=== PATIENT | male | born 1970 | race Caucasian/White ===

== ENCOUNTER 2021-09-20 18:27 | Inpatient (IN) ==
[2021-09-20] MEDS ORDERED: Melatonin 3 MG TABLET PO PRN (21:31)
[2021-09-20] MEDS ORDERED: Naloxone 0.4 MG/ML INJ IVP PRN (21:31)
[2021-09-20] MEDS ORDERED: GI Cocktail 40 ML EACH PO ONE (22:06)
[2021-09-21 01:07] LABS: Hematocrit 41.6 % (37.5-50.1); Hemoglobin 13.9 g/dL (12.9-16.9); Mean Corpuscular HGB Conc 33.4 g/dL (31.6-35.5); Mean Corpuscular Hemoglobin 32.8 pg (28.0-33.3); Mean Corpuscular Volume 98.1 fL (83.0-100.0); Mean Platelet Volume 10.8 fL (9.4-12.4); Platelet Count 216 K/mcL (140-400); Red Blood Count 4.24 M/mcL (4.19-5.50); Red Cell Distribution Width 13.4 % (11.5-14.5); White Blood Count 9.9 K/mcL (4.3-11.1)
[2021-09-21 01:32] LABS: Alanine Aminotransferase 33 Units/L (7-52); Albumin 3.5 g/dL (3.5-5.7); Albumin/Globulin Ratio 1.8 (1.1-2.2); Alkaline Phosphatase 68 Units/L (34-104); Aspartate Amino Transferase 28 Units/L (13-39); BUN/Creatinine Ratio 23 (6-26); Bilirubin,Total 0.4 mg/dL (0.3-1.0); Blood Urea Nitrogen 26 mg/dL (6-20); Calcium 8.3 mg/dL (8.6-10.3); Carbon Dioxide 25 mEq/L (23-29); Chloride 106 mEq/L (98-107); Globulin 1.9 g/dL (2.4-3.5); Glucose 105 mg/dL (70-105); Magnesium 2.2 mg/dL (1.6-2.6); Osmolality,Calculated 291 (280-300); Sodium 138 mEq/L (136-145); Total Protein 5.4 g/dL (6.4-8.9); Troponin I < 0.03 ng/mL (< 0.04); eGFR For African Americans > 60 (> 60); eGFR For Non-African Americans > 60 (> 60)
[2021-09-21] MEDS: *HR* Heparin 5,000 UNIT/ML VIAL SQ SCH ×2 (06:25→16:56)
[2021-09-21] MEDS: lisinopriL 20 MG TABLET PO SCH (08:39)
[2021-09-21] MEDS: Aspirin 81 MG TAB.CHEW PO SCH (08:39)
[2021-09-21] MEDS ORDERED: Regadenoson 0.4 MG/5 ML SYRINGE IVP ONE (08:40)
[2021-09-21] MEDS: Nicotine 21 MG PATCH.TD24 TD SCH (14:08)
[2021-09-21] MEDS: Isosorbide MONOnitrate (24 HR) 30 MG TAB.ER.24H PO SCH (15:25)
[2021-09-21] MEDS ORDERED: Nitroglycerin 0.4 MG TAB.SUBL SL ONE (18:38)
[2021-09-21] MEDS: Nitroglycerin 0.4 MG TAB.SUBL SL PRN (18:40)
[2021-09-21] MEDS: carvediloL 25 MG TABLET PO SCH (21:06)
[2021-09-21] MEDS ORDERED: Ondansetron 4 MG/2 ML VIAL IVP ONE (23:38)
[2021-09-21] MEDS ORDERED: Morphine Sulfate 2 MG/ML SYRINGE IVP ONE (23:46)
[2021-09-21] MEDS ORDERED: 0.9 % Sodium Chloride 1,000 ML ONE (23:51)
[2021-09-21] MEDS ORDERED: 0.9 % Sodium Chloride 500 ML IVC ONE (23:51)
[2021-09-22 00:27] LABS: Basophils # 0.1 K/mcL (0.0-0.2); Basophils % 0.9 %; Eosinophils # 0.1 K/mcL (0.0-0.6); Eosinophils % 1.2 %; Hematocrit 43.4 % (37.5-50.1); Hemoglobin 14.7 g/dL (12.9-16.9); Immature Granulocytes % 1.9 % (0-4); Lymphocytes # 1.7 K/mcL (0.6-4.6); Lymphocytes % 22.3 %; Mean Corpuscular HGB Conc 33.9 g/dL (31.6-35.5); Mean Corpuscular Hemoglobin 32.5 pg (28.0-33.3); Mean Corpuscular Volume 95.8 fL (83.0-100.0); Mean Platelet Volume 10.8 fL (9.4-12.4); Monocytes # 0.9 K/mcL (0.0-1.3); Monocytes % 11.3 %; Neutrophils # 4.9 K/mcL (1.6-8.9); Platelet Count 226 K/mcL (140-400); Red Blood Count 4.53 M/mcL (4.19-5.50); Red Cell Distribution Width 13.2 % (11.5-14.5); Segmented Neutrophils % 62.4 %; White Blood Count 7.8 K/mcL (4.3-11.1)
[2021-09-22 00:37] LABS: Influenza A PCR Negative (Negative); Influenza B PCR Negative (Negative); Resp. Syncytial Virus PCR Negative (Negative)
[2021-09-22 01:02] LABS: Alanine Aminotransferase 34 Units/L (7-52); Albumin 2.9 g/dL (3.5-5.7); Albumin/Globulin Ratio 1.9 (1.1-2.2); Alkaline Phosphatase 56 Units/L (34-104); Aspartate Amino Transferase 21 Units/L (13-39); BUN/Creatinine Ratio 26 (6-26); Bilirubin,Total 0.4 mg/dL (0.3-1.0); Blood Urea Nitrogen 20 mg/dL (6-20); Calcium 6.3 mg/dL (8.6-10.3); Carbon Dioxide 17 mEq/L (23-29); Chloride 115 mEq/L (98-107); Globulin 1.5 g/dL (2.4-3.5); Glucose 106 mg/dL (70-105); Osmolality,Calculated 291 (280-300); Potassium 2.8 mEq/L (3.5-5.1); Sodium 139 mEq/L (136-145); Total Protein 4.4 g/dL (6.4-8.9); Troponin I < 0.03 ng/mL (< 0.04); eGFR For African Americans > 60 (> 60); eGFR For Non-African Americans > 60 (> 60)
[2021-09-22 01:08] LABS: SARS-CoV-2 by PCR (In House) Positive (Negative)
[2021-09-22 01:56] LABS: BUN/Creatinine Ratio 24 (6-26); Blood Urea Nitrogen 24 mg/dL (6-20); Calcium 8.2 mg/dL (8.6-10.3); Carbon Dioxide 22 mEq/L (23-29); Chloride 107 mEq/L (98-107); Glucose 119 mg/dL (70-105); Osmolality,Calculated 287 (280-300); Sodium 136 mEq/L (136-145); Troponin I < 0.03 ng/mL (< 0.04); eGFR For African Americans > 60 (> 60); eGFR For Non-African Americans > 60 (> 60)
[2021-09-22] MEDS ORDERED: *HR* Heparin 5,000 UNIT/ML VIAL IVP PRN (02:37)
[2021-09-22] MEDS: Heparin 25,000UNIT/250ML 1/2NS 25,000 UNIT/250 ML IV.SOLN IVC SCH ×2 (03:25→23:10)
[2021-09-22] MEDS: Aspirin 81 MG TAB.CHEW PO SCH (08:42)
[2021-09-22] MEDS: lisinopriL 20 MG TABLET PO SCH (08:42)
[2021-09-22] MEDS: carvediloL 25 MG TABLET PO SCH (08:42)
[2021-09-22] MEDS: Isosorbide MONOnitrate (24 HR) 30 MG TAB.ER.24H PO SCH (08:42)
[2021-09-22] MEDS: Nicotine 21 MG PATCH.TD24 TD SCH ×2 (08:43→16:30)
[2021-09-22 09:17] LABS: Bilirubin,Urine Negative (Negative); Blood,Urine Negative (Negative); Clarity,Urine Clear (Clear); Color,Urine Light-Yellow (Yellow); Glucose,Urine (UA) Normal (Normal); Ketones,Urine Negative (Negative); Leukocyte Esterase,Urine Negative (Negative); Nitrite,Urine Negative (Negative); Protein,Urine Trace mg/dL (Neg-Trace); Specific Gravity,Urine 1.026 (1.010-1.025); Urobilinogen,Urine Normal (Normal)
[2021-09-22] MEDS ORDERED: Gadolinium Contrast Agent (WT Based) IV PRN (10:13)
[2021-09-22 11:10] LABS: Hematocrit 42.4 % (37.5-50.1); Hemoglobin 13.7 g/dL (12.9-16.9); Mean Corpuscular HGB Conc 32.3 g/dL (31.6-35.5); Mean Corpuscular Volume 99.1 fL (83.0-100.0); Mean Platelet Volume 10.8 fL (9.4-12.4); Platelet Count 197 K/mcL (140-400); Red Blood Count 4.28 M/mcL (4.19-5.50); Red Cell Distribution Width 13.3 % (11.5-14.5); White Blood Count 7.6 K/mcL (4.3-11.1)
[2021-09-22 11:24] LABS: Heparin anti-factor XA UFH 0.23 IU/mL (0.30-0.70); INR 0.9; Prothrombin Time 10.1 Seconds (9.4-12.1)
[2021-09-22] MEDS: *HR* Heparin 5,000 UNIT/ML VIAL IVP PRN (11:50)
[2021-09-22] MEDS ORDERED: Perflutren Lipid Microsphere 1.3 ML in 0.9 % Sodium Chloride 8.7 ML IVP PRN (13:42)
[2021-09-22] MEDS ORDERED: *HR* LORazepam 2 MG/ML VIAL IVP ONE (19:40)
[2021-09-23 02:37] LABS: Hematocrit 44.5 % (37.5-50.1); Mean Corpuscular HGB Conc 31.5 g/dL (31.6-35.5); Mean Corpuscular Hemoglobin 31.2 pg (28.0-33.3); Mean Corpuscular Volume 99.1 fL (83.0-100.0); Mean Platelet Volume 11.2 fL (9.4-12.4); Platelet Count 207 K/mcL (140-400); Red Blood Count 4.49 M/mcL (4.19-5.50); Red Cell Distribution Width 13.4 % (11.5-14.5); White Blood Count 7.6 K/mcL (4.3-11.1)
[2021-09-23 02:51] LABS: BUN/Creatinine Ratio 19 (6-26); Blood Urea Nitrogen 22 mg/dL (6-20); Calcium 8.5 mg/dL (8.6-10.3); Carbon Dioxide 24 mEq/L (23-29); Chloride 107 mEq/L (98-107); Glucose 97 mg/dL (70-105); Osmolality,Calculated 287 (280-300); Potassium 4.1 mEq/L (3.5-5.1); Sodium 137 mEq/L (136-145); eGFR For African Americans > 60 (> 60); eGFR For Non-African Americans > 60 (> 60)
[2021-09-23] MEDS: *HR* Heparin 5,000 UNIT/ML VIAL IVP PRN (03:24)
[2021-09-23] MEDS: Aspirin 81 MG TAB.CHEW PO SCH (08:47)
[2021-09-23] MEDS: Isosorbide MONOnitrate (24 HR) 30 MG TAB.ER.24H PO SCH (08:47)
[2021-09-23] MEDS: lisinopriL 20 MG TABLET PO SCH (08:47)
[2021-09-23] MEDS: Nicotine 21 MG PATCH.TD24 TD SCH (08:49)
[2021-09-23] MEDS ORDERED: Metoprolol XL (24 HR) Succ 25 MG TAB.ER.24H PO SCH ×2 (09:00)
[2021-09-23] MEDS: Nitroglycerin 0.4 MG TAB.SUBL SL PRN (09:49)
[2021-09-23] MEDS: Heparin 25,000UNIT/250ML 1/2NS 25,000 UNIT/250 ML IV.SOLN IVC SCH (19:23)
[2021-09-23] MEDS ORDERED: 0.9 % Sodium Chloride 1,000 ML IVC SCH (20:00)
[2021-09-24 02:13] LABS: Basophils % 0.6 %; Eosinophils # 0.1 K/mcL (0.0-0.6); Eosinophils % 1.5 %; Hematocrit 42.4 % (37.5-50.1); Hemoglobin 14.1 g/dL (12.9-16.9); Immature Granulocytes % 1.1 % (0-4); Lymphocytes # 2.6 K/mcL (0.6-4.6); Lymphocytes % 36.1 %; Mean Corpuscular HGB Conc 33.3 g/dL (31.6-35.5); Mean Corpuscular Hemoglobin 32.9 pg (28.0-33.3); Mean Corpuscular Volume 98.8 fL (83.0-100.0); Mean Platelet Volume 10.9 fL (9.4-12.4); Monocytes # 0.8 K/mcL (0.0-1.3); Monocytes % 10.8 %; Neutrophils # 3.6 K/mcL (1.6-8.9); Platelet Count 185 K/mcL (140-400); Red Blood Count 4.29 M/mcL (4.19-5.50); Red Cell Distribution Width 13.2 % (11.5-14.5); Segmented Neutrophils % 49.9 %; White Blood Count 7.2 K/mcL (4.3-11.1)
[2021-09-24 02:27] LABS: BUN/Creatinine Ratio 22 (6-26); Blood Urea Nitrogen 24 mg/dL (6-20); Calcium 8.5 mg/dL (8.6-10.3); Carbon Dioxide 25 mEq/L (23-29); Chloride 105 mEq/L (98-107); Glucose 133 mg/dL (70-105); Osmolality,Calculated 294 (280-300); Potassium 3.8 mEq/L (3.5-5.1); Sodium 139 mEq/L (136-145); eGFR For African Americans > 60 (> 60); eGFR For Non-African Americans > 60 (> 60)
[2021-09-24] MEDS: Aspirin 81 MG TAB.CHEW PO SCH (07:14)
[2021-09-24] MEDS: lisinopriL 20 MG TABLET PO SCH (07:14)
[2021-09-24] MEDS: Isosorbide MONOnitrate (24 HR) 30 MG TAB.ER.24H PO SCH (07:15)
[2021-09-24] MEDS: Nicotine 21 MG PATCH.TD24 TD SCH (07:15)
[2021-09-24] MEDS ORDERED: Nitroglycerin 0.1 MG PATCH.TD24 TD SCH (07:30)
[2021-09-24] MEDS ORDERED: Metoprolol XL (24 HR) Succ 25 MG TAB.ER.24H PO SCH (09:00)
[2021-09-24] MEDS ORDERED: Heparin 1,000 UNITS/500 mL 500 ML ONE (11:55)
[2021-09-24] MEDS ORDERED: Nitroglycerin 1,000 MCG/5 ML VIAL IV ONE (11:55)
[2021-09-24] MEDS ORDERED: *HR* Heparin 10,000 UNIT/10 ML VIAL ONE (11:55)
[2021-09-24] MEDS ORDERED: 0.9 % Sodium Chloride 2,000 ML ONE (11:55)
[2021-09-24] MEDS ORDERED: ISOVUE-370 200 ML INFUS..BTL ONE (11:55)
[2021-09-24] MEDS ORDERED: *HR* Midazolam HCl 2 MG/2 ML VIAL ONE (12:25)
[2021-09-24] MEDS ORDERED: *HR* FentaNYL (PF) 100 MCG/2 ML VIAL ONE (12:25)
[2021-09-24] MEDS ORDERED: DilTIAZem CD (24hr) 120 MG CAP.ER.24H PO SCH (13:15)
[2021-09-24 15:17] VITALS: TEMP 98.2
[2021-09-24 16:02] VITALS: BP 123/77; PULSE 58; O2SAT 96
== END 2021-09-24 17:19 | disposition home or self-care (01) | DRG 286 ==
LOC: 3BNU → SUATTDRO 09-22 13:04
PROVIDERS: ADMIT Family Medicine; ATTEND Internal Medicine